=== PATIENT | female | born 1945 | race African-American/Black ===

== ENCOUNTER 2018-06-07 23:35 | Inpatient (IN) ==
[2018-06-08 00:56] LABS: Basophils % 0.4 % (0.0-0.8); Eosinophils # 0.1 10*3/uL (0.0-0.87); Eosinophils % 0.8 % (0.00-10.9); Hematocrit 42.7 VOL% (35.7-47.0); Hemoglobin 13.7 GM/DL (12.0-16.0); Immature Granulocytes % 0.3 %; Immature Granulocytes Absolute 0.02 #; Lymphocytes # 2.4 10*3/uL (1.4-4.0); Lymphocytes % 31.6 % (21.3-54.2); Mean Corpuscular HGB Conc 32.1 GM/DL (32-36); Mean Corpuscular Hemoglobin 28 PG (27-34); Mean Platelet Volume 9.7 FL (9.6-12.0); Monocytes # 0.6 10*3/uL (0.11-0.8); Monocytes % 8.3 % (1.7-12.7); Neutrophils # 4.5 10*3/uL (1.4-7.4); Neutrophils % 58.6 % (38.7-73.9); Platelet Count 241 T/CUMM (130-400); Red Blood Count 4.85 MC/CUMM (3.8-5.5); Red Cell Distribution Width 13.2 % (9.3-17.3); White Blood Count 7.6 T/CUMM (4-12)
[2018-06-08] MEDS ORDERED: hydrALAZINE 20 MG/1 ML VIAL IV STA (01:07)
[2018-06-08 01:18] LABS: Albumin 3.6 G/DL (3.4-5.0); Bilirubin,Total 0.4 MG/DL (0.2-1.0); Calcium 8.7 MG/DL (8.5-10.1); Osmolality,Calculated 285.1 MOS/KG (273-304); Potassium 3.9 MMOL/L (3.5-5.1); Total Protein 7.2 G/DL (6.4-8.3)
[2018-06-08 01:58] LABS: INR 1.1; PT Patient Result 11.4 SECS
[2018-06-08] MEDS ORDERED: ONDANSETRON 4 MG/2 ML VIAL IV PRN (02:04)
[2018-06-08] MEDS ORDERED: ACETAMINOPHEN 325 MG TABLET PO PRN (02:04)
[2018-06-08 02:26] LABS: Apearance,Urine Slightly Hazy (Clear); Bacteria,Urine Occasional /HPF (Few); Bilirubin,Urine Negative (Negative); Blood, Urine Negative (Negative); Glucose,Urine (UA) Negative (Negative); Hyaline Casts,Urine 3 /LPF (0-3); Ketones,Urine Negative (Negative); Mucus,Urine Occasional /LPF (Occasional); Nitrite,Urine Negative (Negative); Protein,Urine Negative; RBC,Urine 9 /HPF (0-4); Squamous Epithelial Cell,Urine Occasional /HPF (0-10); Urine Color Yellow (Yellow); Urine Specific Gravity 1.013 (1.001-1.035); Urine Urobilinogen < 2.0 EU/DL (0.2-1.0); WBC,Urine 28 /HPF (0-6)
[2018-06-08] MEDS ORDERED: cefTRIAXone 250 MG VIAL IV STA (02:54)
[2018-06-08 06:53] LABS: Basophils % 0.2 % (0.0-0.8); Eosinophils # 0.1 10*3/uL (0.0-0.87); Eosinophils % 0.6 % (0.00-10.9); Hematocrit 41.3 VOL% (35.7-47.0); Hemoglobin 13.3 GM/DL (12.0-16.0); Immature Granulocytes % 0.3 %; Immature Granulocytes Absolute 0.03 #; Lymphocytes # 2.6 10*3/uL (1.4-4.0); Lymphocytes % 27.1 % (21.3-54.2); Mean Corpuscular HGB Conc 32.2 GM/DL (32-36); Mean Corpuscular Hemoglobin 28 PG (27-34); Mean Corpuscular Volume 86.9 FL (87-102); Mean Platelet Volume 9.7 FL (9.6-12.0); Monocytes # 0.8 10*3/uL (0.11-0.8); Monocytes % 7.9 % (1.7-12.7); Neutrophils # 6.2 10*3/uL (1.4-7.4); Neutrophils % 63.9 % (38.7-73.9); Platelet Count 246 T/CUMM (130-400); Red Blood Count 4.75 MC/CUMM (3.8-5.5); Red Cell Distribution Width 13.2 % (9.3-17.3); White Blood Count 9.7 T/CUMM (4-12)
[2018-06-08 07:24] LABS: Albumin 3.4 G/DL (3.4-5.0); Bilirubin,Total 0.9 MG/DL (0.2-1.0); Calcium 8.4 MG/DL (8.5-10.1); Potassium 3.6 MMOL/L (3.5-5.1); Total Protein 6.8 G/DL (6.4-8.3)
[2018-06-08] MEDS ORDERED: DILTIAZEM 50 MG/10 ML VIAL IV ONE ×2 (08:20→10:00)
[2018-06-08] MEDS: PANTOPRAZOLE 40 MG TABLET PO SCH (08:56)
[2018-06-08] MEDS: DILTIAZEM 60 MG TABLET PO SCH ×4 (08:56→21:05)
[2018-06-08] MEDS: ENOXAPARIN 40 MG/0.4 ML SYRINGE SUBCUT SCH (08:57)
[2018-06-08] MEDS ORDERED: DICYCLOMINE 20 MG TABLET PO PRN (08:59)
[2018-06-08] MEDS ORDERED: DILTIAZEM CD 240 MG CAPSULE PO SCH (09:00)
[2018-06-08] MEDS ORDERED: chlordiazePOXIDE 10 MG CAPSULE PO SCH (09:00)
[2018-06-08] MEDS: POTASSIUM CHLORIDE 20 MEQ TABLET PO SCH (11:18)
[2018-06-08] MEDS: FUROSEMIDE 20 MG TABLET PO SCH (11:18)
[2018-06-08] MEDS ORDERED: ChlordiazePOXIDE/CLIDINIUM 5-2.5 MG CAPSULE PO PRN (16:04)
[2018-06-08] MEDS ORDERED: SODIUM CHLORIDE 0.9% 1,000 ML IV SCH ×2 (16:30)
[2018-06-09 03:23] LABS: Basophils % 0.3 % (0.0-0.8); Eosinophils # 0.1 10*3/uL (0.0-0.87); Eosinophils % 1.1 % (0.00-10.9); Hematocrit 40.1 VOL% (35.7-47.0); Hemoglobin 12.4 GM/DL (12.0-16.0); Immature Granulocytes % 0.3 %; Immature Granulocytes Absolute 0.02 #; Lymphocytes # 2.7 10*3/uL (1.4-4.0); Mean Corpuscular HGB Conc 30.9 GM/DL (32-36); Mean Corpuscular Hemoglobin 27 PG (27-34); Mean Corpuscular Volume 88.1 FL (87-102); Mean Platelet Volume 10.1 FL (9.6-12.0); Monocytes # 0.6 10*3/uL (0.11-0.8); Monocytes % 8.6 % (1.7-12.7); Neutrophils # 3.8 10*3/uL (1.4-7.4); Neutrophils % 52.7 % (38.7-73.9); Platelet Count 245 T/CUMM (130-400); Red Blood Count 4.55 MC/CUMM (3.8-5.5); Red Cell Distribution Width 13.3 % (9.3-17.3); White Blood Count 7.2 T/CUMM (4-12)
[2018-06-09 03:38] LABS: Calcium 8.5 MG/DL (8.5-10.1); Osmolality,Calculated 283.1 MOS/KG (273-304); Potassium 3.5 MMOL/L (3.5-5.1)
[2018-06-09] MEDS: cefTRIAXone 1,000 MG in SYRINGE 1 EACH IV SCH (04:29)
[2018-06-09] MEDS ORDERED: DIAZEPAM 5 MG TABLET PO ONE (06:00)
[2018-06-09] MEDS ORDERED: diphenhydrAMINE CAP 25 MG CAPSULE PO ONE (06:00)
[2018-06-09] MEDS ORDERED: ceFAZolin 1,000 MG VIAL IRRIG ONE (06:00)
[2018-06-09] MEDS ORDERED: ceFAZolin 1,000 MG in SYRINGE 1 EACH IV ONE (06:00)
[2018-06-09] MEDS ORDERED: LIDOCAINE 1% 20 ML VIAL ONE (07:08)
[2018-06-09] MEDS ORDERED: ceFAZolin 1,000 MG VIAL ONE (07:09)
[2018-06-09] MEDS ORDERED: fentaNYL 100 MCG/2 ML VIAL ONE (07:21)
[2018-06-09] MEDS ORDERED: MIDAZOLAM 2 MG/2 ML VIAL ONE (07:21)
[2018-06-09] MEDS ORDERED: TISSUE ADHESIVE 1 EACH APPLICATOR TOP ONE (08:19)
[2018-06-09] MEDS ORDERED: ChlordiazePOXIDE/CLIDINIUM 5-2.5 MG CAPSULE PO PRN (09:00)
[2018-06-09] MEDS ORDERED: AMIODARONE INJ 150 MG in DEXTROSE 5% 100 ML IV ONE (09:24)
[2018-06-09] MEDS ORDERED: AMIODARONE INJ 450 MG in DEXTROSE 5% 241 ML IV SCH (09:30)
[2018-06-09] MEDS: ENOXAPARIN 40 MG/0.4 ML SYRINGE SUBCUT SCH (09:57)
[2018-06-09] MEDS: DILTIAZEM 60 MG TABLET PO SCH ×4 (10:25→20:30)
[2018-06-09] MEDS: PANTOPRAZOLE 40 MG TABLET PO SCH (10:25)
[2018-06-09] MEDS: POTASSIUM CHLORIDE 20 MEQ TABLET PO SCH (10:26)
[2018-06-09] MEDS: FUROSEMIDE 20 MG TABLET PO SCH (10:26)
[2018-06-09] MEDS: AMIODARONE INJ 450 MG in DEXTROSE 5% 241 ML IV SCH (17:24)
[2018-06-10 03:21] LABS: Hematocrit 44.9 VOL% (35.7-47.0); Hemoglobin 14.3 GM/DL (12.0-16.0); White Blood Count 9.5 T/CUMM (4-12)
[2018-06-10 03:22] LABS: Basophils % 0.2 % (0.0-0.8); Eosinophils % 0.3 % (0.00-10.9); Immature Granulocytes % 0.3 %; Immature Granulocytes Absolute 0.03 #; Lymphocytes # 2.3 10*3/uL (1.4-4.0); Mean Corpuscular HGB Conc 31.8 GM/DL (32-36); Mean Corpuscular Hemoglobin 28 PG (27-34); Mean Platelet Volume 10.2 FL (9.6-12.0); Monocytes # 0.7 10*3/uL (0.11-0.8); Monocytes % 7.6 % (1.7-12.7); Neutrophils # 6.4 10*3/uL (1.4-7.4); Neutrophils % 67.6 % (38.7-73.9); Platelet Count 250 T/CUMM (130-400); Red Cell Distribution Width 13.1 % (9.3-17.3)
[2018-06-10 03:38] LABS: Calcium 8.7 MG/DL (8.5-10.1); Osmolality,Calculated 278.4 MOS/KG (273-304); Potassium 3.5 MMOL/L (3.5-5.1)
[2018-06-10] MEDS: cefTRIAXone 1,000 MG in SYRINGE 1 EACH IV SCH (04:23)
[2018-06-10] MEDS: ENOXAPARIN 40 MG/0.4 ML SYRINGE SUBCUT SCH (09:18)
[2018-06-10] MEDS: PANTOPRAZOLE 40 MG TABLET PO SCH (09:18)
[2018-06-10] MEDS: POTASSIUM CHLORIDE 20 MEQ TABLET PO SCH ×2 (09:18→21:25)
[2018-06-10] MEDS: AMIODARONE 200 MG TABLET PO SCH ×2 (09:18→21:25)
[2018-06-10] MEDS: FUROSEMIDE 20 MG TABLET PO SCH (09:18)
[2018-06-10] MEDS: DILTIAZEM CD 240 MG CAPSULE PO SCH ×2 (09:19→21:25)
[2018-06-10] MEDS: AMIODARONE INJ 450 MG in DEXTROSE 5% 241 ML IV SCH (10:26)
[2018-06-11] MEDS: AMIODARONE INJ 450 MG in DEXTROSE 5% 241 ML IV SCH (01:35)
[2018-06-11] MEDS: DILTIAZEM CD 240 MG CAPSULE PO SCH (08:55)
[2018-06-11] MEDS: PANTOPRAZOLE 40 MG TABLET PO SCH (08:56)
[2018-06-11] MEDS: ENOXAPARIN 40 MG/0.4 ML SYRINGE SUBCUT SCH (08:56)
[2018-06-11] MEDS: FUROSEMIDE 20 MG TABLET PO SCH (08:56)
[2018-06-11] MEDS: POTASSIUM CHLORIDE 20 MEQ TABLET PO SCH (09:16)
[2018-06-11] MEDS: AMIODARONE 200 MG TABLET PO SCH (09:16)
[2018-06-11 12:51] VITALS: BP 140/74
== END 2018-06-11 16:00 | disposition home or self-care (01) | DRG 243 ==
LOC: EDBD → EDUNIT# → N.EDINP 23:35 → N.ED 23:35 → N.TELEN 06-08 02:35 → N.TELES 06-09 16:10
PROVIDERS: ADMIT Internal Medicine; ATTEND Internal Medicine